=== PATIENT | female | born 2000 | race Caucasian/White ===

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

== ENCOUNTER 2022-12-30 22:58 | Outpatient (CLI) | payer MEDICAID, SELFPAY ==
[2022-12-30 23:09] VITALS: BMI 30.4
[2022-12-30 23:42] VITALS: TEMP 36.2
[2022-12-30 23:44] VITALS: BP 123/80; PULSE 72
[2022-12-31 00:02] LABS: Protein Urine 1+ (Negative); Urine Color Dark Yellow (Yellow); pH Urine 6 (5-7)
[2022-12-31 00:03] LABS: Add Urine Culture? No; Bacteria Urine 1+ /hpf; Bilirubin Urine 1+ (Negative); Blood Urine Neg (Negative); Glucose Urine UA 4+ (Normal); Ketones Urine 2+ (Negative); Leukocyte Esterase Urine Negative (Negative); Mucus Urine 3+ /hpf; Nitrate Urine Negative (Negative); Urine Appearance SL Hazy (CLEAR); Urobilinogen Urine 1 mg/dL (Negative)
[2022-12-31 00:20] VITALS: BP 123/80; PULSE 72; RESP 16; TEMP 36.2
== END 2022-12-31 00:23 | disposition home or self-care (01) ==
LOC: OPOB 23:03 → OBGYN 23:05
PROVIDERS: PCP Family Medicine; Visit Provider Family Medicine
DX: O47.9 False labor, unspecified (principal); Z3A.00 Weeks of gestation of pregnancy not specified
CPT/HCPCS: 59025; 81001; 99211

== ENCOUNTER 2023-01-03 05:59 | Inpatient (IN) | payer MEDICAID, SELFPAY ==
[2023-01-03] VITALS (52 sets, daily range): BP systolic 124–156; BP diastolic 81–108; PULSE 71–137; RESP 16–18; TEMP 36.2–37; O2SAT 99–100; BMI 31.2
[2023-01-03 08:09] LABS: Basophils % 0.5 %; Eosinophils # 0.1 10^3/uL (0.0-0.8); Eosinophils % 1.2 %; Hematocrit 35.3 % (36-47); Lymphocytes # 2.1 10^3/uL (1.5-6.5); Lymphocytes % 35.9 %; Mean Corpuscular HGB Conc 32.6 g/dL (30-55); Mean Corpuscular Hemoglobin 25.6 pg (27-33); Mean Corpuscular Volume 78.6 fl (85-98); Monocytes # 0.6 10^3/uL (0.2-0.9); Monocytes % 9.9 %; Neutrophils # 3.08 10^3/uL (1.8-8.0); Neutrophils % 51.7 %; Nucleated Red Blood Cells % 0 %; Platelet Count 183 10^3/cmm (157-399); Red Blood Count 4.49 10^6/uL (3.85-5.65); Red Cell Distribution Width 13.2 % (12.1-15.1); White Blood Count 5.96 10^3/uL (4.5-13.0)
[2023-01-03] MEDS: sodium chloride 0.9% 1,000 ML 125 ML IV ×3 (08:21→16:05)
[2023-01-03] MEDS: ampicillin 2,000 MG in sodium chloride 0.9% (plus) 50 ML 100 MG IV (08:21)
--- NOTE | 2023-01-03 08:47 | PM.OBGYHP ---
Providers/Chief Complaint Admitting Physician: Price Calzada MD Primary Care Provider: Giorgi Hernandez MD Chief Complaint: induction HPI SALES OPERATIONS ANALYST History of Present Illness This is a 22-year-old G3, P1 that presents for induction of labor due to pre-existing diabetes. The patient is a type I diabetic. Overall, the patient's blood sugars have been adequately controlled. The patient had significant issues with fasting the blood sugars and initially they were fairly uncontrolled. Patient's last A1c was 7.7. The patient had a history of preeclampsia and shoulder dystocia with prior delivery. Patient had been getting interval growth ultrasounds and her last growth ultrasound showed estimated weight of 6 pounds 4 ounce. Patient is GBS positive. lab work was unremarkable. Patient's care was fairly unremarkable. Present Details : 3 Para: 1 Labs Rubella: Immune RPR: Negative GBS: Positive Review of Systems General: Reports: 10 or more systems reviewed and unremarkable except in HPI and below Medications/Allergies Home Medications Medication Instructions Recorded Confirmed Last Taken Type Novolog Flexpen U-100 Insulin See Rx Instructions .Route .COMPLEX 07/23/20 01/03/23 01/03/23 05:04 History flash glucose scanning reader #1 ea 07/30/20 02/25/22 Unknown Rx (FreeStyle Rashid 2 [place]) flash glucose sensor (FreeStyle #2 ea 07/30/20 02/25/22 Unknown Rx Rashid 2 Sensor kit) [id number] 1 mg 1 tab PO DAILY 01/03/23 01/03/23 01/03/23 04:30 History tablet Allergies Allergy/AdvReac Type Severity Reaction Status Date / Time No Known Allergies Allergy Verified 01/03/23 06:19 PFSH SALES OPERATIONS ANALYST PFSH: Medical History Diabetes type 1, uncontrolled Eclampsia during puerperium, uterine contractions Surgical History No history of previous surgery Family History Other Hypertension Social History Smoking and tobacco status: never smoked Second hand smoke exposure: No Alcohol intake: never Vitals/I&O/Wt Last Vital Signs Temp 97.2 F L 01/03/23 06:28 Pulse 79 01/03/23 08:41 BP 148/101 01/03/23 08:41 O2 Del Method Room Air 01/03/23 06:28 Weight last 48 hrs Weight 82.554 kg Physical Exam Const: COMMON NORMALS: no acute distress, patient oriented x3, healthy appearing and alert Resp: COMMON NORMALS: normal respiratory effort and No retractions Cardio: COMMON NORMALS: no JVD and regular rate GI: OTHER: gravid Extremity: COMMON NORMALS: normal to inspection, full ROM and no clubbing, cyanosis or edema Neuro: COMMON NORMALS: patient oriented x3, moves all extremities, no focal motor deficits and no sensory deficits noted Psych: COMMON NORMALS: mental status grossly normal, cooperative and normal affect Skin: COMMON NORMALS: no rashes or lesions noted Data 01/03/23 06:58 A&P Assessment and plan (1) Term , repeat: Proceed with routine labor management. Start Pitocin for induction. (2) Type 2 diabetes mellitus affecting in third trimester, antepartum: Start with checking blood sugars every 4 hours. We will start normal saline but may add D5 if needed. May need to restart insulin pump if elevated glucoses are noted. (3) GBS (group B Streptococcus carrier), +RV culture, currently : Start amp Attestations Medical Necessity Statement*: Admit for induction of labor and anticipate at least 1 midnight stay. Coding Level of Care Code Acute Code for Chg Fwd Diagnoses Term , repeat Z34.90 Type 2 diabetes mellitus affecting in third trimester, antepartum O24.113 GBS (group B Streptococcus carrier), +RV culture, currently O99.820
[2023-01-03] MEDS: oxytocin 30 UNIT/500 ML BAG IV (08:54)
[2023-01-03] MEDS: ampicillin 1,000 MG in sodium chloride 0.9% (plus) 50 ML 100 MG IV ×2 (12:54→18:08)
[2023-01-03] MEDS: fentaNYL 50 mcg/mL INJ 2mL IVP (13:33)
[2023-01-03] MEDS: ROPivacaine syringe 100 MG/50 ML SYRINGE 10 MG EPIDURAL ×2 (13:59→17:17)
--- NOTE | 2023-01-03 14:14 | P.ANESASSM_ITS ---
Pre-Anesthetic Assessment Height/Weight: Height 1.63 m Weight 82.554 kg Temp Pulse Resp BP Pulse Ox O2 Del Method 97.2 F L 98 17 129/91 100 Room Air 01/03/23 13:59 01/03/23 14:02 01/03/23 13:33 01/03/23 14:02 01/03/23 13:56 01/03/23 07:49 Preop Diagnosis: IUP Labor Epidural Familial anesthetic complications: None Was Beta Anamika taken within 24 hours: N/A Was Clonidine taken within 24 hours: N/A Last intake: solid: 0430 Liquid: 0830 Social No alcohol and No tobacco Exam alert, oriented x 3, clear to auscultation bilaterally and regular rate & rhythm Airway Submandibular: within normal limits Cervical ROM: within normal limits Mallampati: Class II Dentition: full History/ROS No significant history except as noted Pulmonary None reported CV/HEM None reported None reported Hepatic None reported GI Gastroesophageal Reflux Disease Metabolic Diabetes Mellitus (Type I, on insulin pump ) Musc/skel None reported Neuropsych None reported Anesthetic Plan ASA status: 2 Anesthesia: Anesthesia Evaluation, Eval. for regional block (epidural ) and Regional (specify below) Risk of > 500 ml blood loss (7ml/kg in children): Yes, adequate IV access and fluids planned Medications/Allergies Home Medications Medication Instructions Recorded Confirmed Last Taken Type Novolog Flexpen U-100 Insulin See Rx Instructions .Route .COMPLEX 07/23/20 01/03/23 01/03/23 05:04 History flash glucose scanning reader #1 ea 07/30/20 02/25/22 Unknown Rx (FreeStyle Rashid 2 [place]) flash glucose sensor (FreeStyle #2 ea 07/30/20 02/25/22 Unknown Rx Rashid 2 Sensor kit) [id number] 1 mg 1 tab PO DAILY 01/03/23 01/03/23 01/03/23 04:30 History tablet Allergies Allergy/AdvReac Type Severity Reaction Status Date / Time No Known Allergies Allergy Verified 01/03/23 06:19 Current Medications Generic Name Dose Route Start Last Admin Trade Name Freq PRN Reason Stop Dose Admin Fentanyl 25 - 100 mcg 01/03/23 07:49 01/03/23 13:33 Fentanyl 50 Mcg/Ml Inj 2ml IVP 25 mcg Q1H PRN Administration SEVERE PAIN Ampicillin Sodium 1,000 mg/ 50 mls @ 100 mls/hr 01/03/23 12:00 01/03/23 12:54 Sodium Chloride IV 100 mls/hr Q4H AIDE Administration Protocol Sodium Chloride 1,000 mls @ 125 mls/hr 01/03/23 08:00 01/03/23 13:06 Sodium Chloride 0.9% IV 125 mls/hr .Q8H AIDE Administration Oxytocin 30 unit in 500 mls @ 1 mls/hr 01/03/23 08:00 01/03/23 11:30 Pitocin IV 10 milliunit/min .Q24H AIDE 10 mls/hr Titration Protocol 1 MILLIUNIT/MIN Ropivacaine 100 mg in 50 mls @ 10 mls/hr 01/03/23 13:30 01/03/23 13:59 Naropin Syringe EPIDURAL 10 mls/hr .Q5H AIDE Administration PFSH Anesthesia Medical History Diabetes type 1, uncontrolled Eclampsia during puerperium, uterine contractions Surgical History No history of previous surgery Family History Other Hypertension Social History Smoking and tobacco status: never smoked Second hand smoke exposure: No Alcohol intake: never Female Reproductive History : 3 Data Anesthesia 01/03/23 06:58 Short CBC 01/03/23 Range/Units 06:58 WBC 5.96 (4.5-13.0) 10^3/uL Hgb 11.50 L (12.4-14.8) g/dL Hct 35.3 L (36-47) % MCV 78.6 L (85-98) fl Plt Count 183 (157-399) 10^3/cmm Neut % (Auto) 51.7 % Neut # (Auto) 3.08 (1.8-8.0) 10^3/uL Cardiac Studies: No Data to Display Anesthesia Procedures Date of Procedure 01/03/23 Epidural Time Out Performed: Yes Consents Signed: Procedure Consent Consent: requested by attending/covering physician, from patient, risks and benefits reviewed and patient agrees to proceed Lumbar Level: L4-L5 Epidural position: sitting Epidural procedure: sterile prep of area, 1% lidocaine to numb the area, 18 g needle, negative for paresthesia passed, test dose given, 1.5% xylocaine 1:200k epi (3 ml), placed PCEA, no systemic response, sterile dressing applied, L.U.D. no apparent complications and 0.2% Ropiavacaine @ mls/hr (10) Additional Comments: RUDDY 4.5cm, catheter easily threaded to 5cm in the space. pt educated on [employer] and report given to RN.
[2023-01-03] MEDS: oxytocin 30 UNIT/500 ML BAG 600 UNIT IV (20:22)
--- NOTE | 2023-01-03 20:26 | P.PCNOB_ITS ---
Delivery Note: Date of delivery: January 03, 2023 Pre-delivery diagnoses: Term intrauterine , pre-existing type 1 diabetes Post-delivery diagnoses: Same, viable female Procedure: Spontaneous vaginal delivery Op report anesthesia: Epidural Delivering Physician: Yon Calzada MD Estimated blood loss (mL): 200 Pre-Delivery Course: This is a 22-year-old G3, P2 that presented at 38 weeks 2 days for induction of labor secondary to type 1 diabetes. Patient was started on Pitocin and entered into a nice contraction pattern. Artificial rupture of membranes occurred and the patient slowly dilated to completion over the next several hours. heart tones were reassuring throughout the labor process. Delivery: Once patient was complete the patient was placed into normal lithotomy position and started pushing with each contraction. Patient made slow progression with each push. Several maneuvers were performed to help baby descent with pushes and eventually the 's head was delivered. Obvious shoulder dystocia was inserted and the patient was placed flatly and Tere was performed immediately. After anterior shoulder shoulder was not delivered then suprapubic pressure towards maternal left was performed and downward traction was placed. Continue maneuvers was performed and with a combination of Yoandy and Palomares maneuvers eventually the anterior shoulder was delivered. Significant downward traction was performed. Estimated time of dystocia was approximately 3 minutes. Infant's body was then delivered and was placed on maternal abdomen. Cord was clamped and cut and was handed off to waiting nursing staff for recovery. Placenta was then delivered soon after. Review of the perineum showe d a second-degree perineal tear and several first-degree labial tears that were not actively bleeding. Second-degree tear was repaired with 2-0 Vicryl. The labial tears were not repaired since they were not actively bleeding. Uterus was firm after procedure and bleeding was controlled. Post-Delivery Status: Stable History History History 3 Term 2 Miscarriages/Ectopic 1 Living Children 2 A&P Assessment and plan (1) Vaginal delivery: Routine care (2) Shoulder dystocia during labor and delivery, delivered: (3) Type 1 diabetes mellitus in : Restart insulin pump at normal basal rate. Normal diabetic diet. Coding Level of Care Code Acute Code for Chg Fwd Diagnoses Vaginal delivery O80 Shoulder dystocia during labor and delivery, delivered O66.0 Type 1 diabetes mellitus in O24.019
[2023-01-03] MEDS: ondansetron 2 mg/ML SDV 2 mL 4 MG IVP (22:54)
[2023-01-03] MEDS: HYDROcodone-acetaminophen 5-325 mg Tablet PO (22:54)
[2023-01-04] VITALS (7 sets, daily range): BP systolic 115–142; BP diastolic 73–96; PULSE 72–112; RESP 16–17; TEMP 36.6–37.5; O2SAT 97–99
--- NOTE | 2023-01-04 00:39 | PC.NURSE ---
blood sugars checked by patient per doctors orders @ 1999- blood sugar of 155. patient instructed by doctor to eat then begin treating with insulin. Checked @ 2200 blood sugar of 189. patient reeducated to eat then begin insulin treatment per doctors orders Checked @ 2345 blood sugar of 296 patient administered 3.4 units of novalog insulin via insulin pump.
[2023-01-04] MEDS: HYDROcodone-acetaminophen 5-325 mg Tablet PO ×2 (04:54→13:07)
--- NOTE | 2023-01-04 05:04 | PC.NURSE ---
Patient checked blood sugar at 0458 using dexacom. Blood sugar level of 145. patient treated wit 0.4 units novalog insulin via insulin pump.
--- NOTE | 2023-01-04 07:22 | PM.OBGYPN ---
ALTERNATIVE DISPUTE RESOLUTION MEDIATOR Subjective Subjective: Interval history: This is a 25-year-old G3, P2 that is status post day 1 spontaneous vaginal delivery with shoulder dystocia. The patient is sore but overall doing well. Patient is ambulating and urinating without difficulty. Lochia is appropriate. Blood sugars are little low this morning but overall stable. Labor: Station: +2 Amniotic Membrane Status: Ruptured Monitor Mode: External Contraction Pattern: Regular Vitals/I&O/Wt Last Vital Signs Temp 97.9 F 01/04/23 05:04 Pulse 93 01/04/23 05:04 Resp 16 01/04/23 05:04 BP 118/78 01/04/23 05:04 Pulse Ox 98 01/04/23 05:04 O2 Del Method Room Air 01/04/23 05:04 01/03/23 01/04/23 01/04/23 22:59 06:59 14:59 Intake Total 1110.250 / 3376.953 5467 / 3278.100 Output Total 200 / 200 1000 / 1200 Balance 910.250 / 1578.100 500 / 2078.100 Weight last 48 hrs Weight 82.554 kg Physical Exam Const: COMMON NORMALS: no acute distress, patient oriented x3, healthy appearing and alert Neck/C-Spine: COMMON NORMALS: no JVD Resp: COMMON NORMALS: normal respiratory effort and No retractions Cardio: COMMON NORMALS: no JVD and regular rate RATE: regular rate GI: OTHER: Uterus firm and below umbilicus Extremity: COMMON NORMALS: normal to inspection, full ROM and no clubbing, cyanosis or edema Neuro: COMMON NORMALS: patient oriented x3, moves all extremities, no focal motor deficits and no sensory deficits noted SENSORIUM/ORIENTATION: Yes alert Psych: COMMON NORMALS: mental status grossly normal, cooperative and normal affect Skin: COMMON NORMALS: no rashes or lesions noted GENERAL SKIN EXAM: no rashes or lesions noted Urinary Catheter Management: Murrell: Cath Placed During This Visit: yes Reason for Continuing Indwelling Catheter: Accurate Measurement of Urinary Output in Critically Ill Patients Urinary Catheter Date of Insertion: 01/03/23 Urinary Catheter Time of Insertion: 15:05 Data 01/03/23 06:58 A&P Assessment and plan (1) Vaginal delivery: Routine care (2) Shoulder dystocia during labor and delivery, delivered: (3) Diabetes type 1, uncontrolled: Diabetic diet, monitor blood sugars. Continue to use insulin pump Attestations Medical Necessity Statement*: Anticipate 2 midnight stay. Likely discharge tomorrow. Coding Level of Care Code Acute Code for Chg Fwd Diagnoses Vaginal delivery O80 Shoulder dystocia during labor and delivery, delivered O66.0 Diabetes type 1, uncontrolled E10.65
[2023-01-04] MEDS: ibuprofen 800 mg tablet PO ×3 (09:19→20:26)
[2023-01-04] MEDS: prenatal vitamin Capsule 1 CAP PO (09:19)
[2023-01-04] MEDS: docusate sodium 100 mg Capsule PO ×2 (09:19→20:25)
[2023-01-04 11:23] LABS: Hematocrit 32.8 % (36-47); Mean Corpuscular HGB Conc 33.8 g/dL (30-55); Mean Corpuscular Hemoglobin 26.5 pg (27-33); Mean Corpuscular Volume 78.3 fl (85-98); Mean Platelet Volume 12.8 fL (7.4-10.4); Platelet Count 190 10^3/cmm (157-399); Red Blood Count 4.19 10^6/uL (3.85-5.65); Red Cell Distribution Width 13.5 % (12.1-15.1); White Blood Count 10.58 10^3/uL (4.5-13.0)
[2023-01-05 05:00] VITALS: BP 108/62; PULSE 86; RESP 16; TEMP 36.7
--- NOTE | 2023-01-05 07:29 | P.DS_ITS ---
Discharge Providers APPLICATION SECURITY ENGINEER Date of Admission: 01/03/23 05:59 Date of Discharge: 01/05/23 Attending Provider at Admission: Price Calzada MD Attending Provider at Discharge: Price Calzada MD Primary Care Provider: Giorgi Hernandez MD Diagnoses at Discharge Discharge Diagnosis (1) Vaginal delivery: Status: Acute (2) Shoulder dystocia during labor and delivery, delivered: Status: Acute (3) Diabetes type 1, uncontrolled: Status: Acute Reason for Visit Reason for Visit: induction Brief History: This is a 22-year-old G3, P2 that presented for induction due to pre-existing type 1 diabetes. Hospital Course Hospital Course Patient was started on Pitocin for induction of labor. Eventually the patient became completely dilated and had a complicated delivery due to severe shoulder dystocia. Once infant was delivered, the patient recovered well. Patient had no complications. Patient is ambulating and urinating without diffi culty. Information Peripartum Data: Infant Delivery Method: Vaginal Laceration description: Perineal - 2nd Degree Episiotomy description: None complications: none Physical Exam Const: COMMON NORMALS: no acute distress, patient oriented x3, healthy appearing and alert Neck/C-Spine: COMMON NORMALS: no JVD Resp: COMMON NORMALS: normal respiratory effort and No retractions Cardio: COMMON NORMALS: no JVD and regular rate RATE: regular rate GI: OTHER: Uterus firm and below umbilicus Extremity: COMMON NORMALS: normal to inspection, full ROM and no clubbing, cyanosis or edema Neuro: COMMON NORMALS: patient oriented x3, moves all extremities, no focal motor deficits and no sensory deficits noted SENSORIUM/ORIENTATION: Yes alert Psych: COMMON NORMALS: mental status grossly normal, cooperative and normal affect Skin: COMMON NORMALS: no rashes or lesions noted GENERAL SKIN EXAM: no rashes or lesions noted Urinary Catheter Management: Murrell: Cath Placed During This Visit: yes Reason for Continuing Indwelling Catheter: Accurate Measurement of Urinary Output in Critically Ill Patients Urinary Catheter Date of Insertion: 01/03/23 Urinary Catheter Time of Insertion: 15:05 History History History 3 Term 2 Miscarriages/Ectopic 1 Living Children 2 Discharge Data Studies Completed and Pending Laboratory Results WBC 10.58 10^3/uL (4.5-13.0) 01/04/23 11:17 RBC 4.19 10^6/uL (3.85-5.65) 01/04/23 11:17 Hgb 11.10 g/dL (12.4-14.8) L 01/04/23 11:17 Hct 32.8 % (36-47) L 01/04/23 11:17 MCV 78.3 fl (85-98) L 01/04/23 11:17 MCH 26.5 pg (27-33) L 01/04/23 11:17 MCHC 33.8 g/dL (30-55) 01/04/23 11:17 RDW 13.5 % (12.1-15.1) 01/04/23 11:17 Plt Count 190 10^3/cmm (157-399) 01/04/23 11:17 MPV 12.8 fL (7.4-10.4) H 01/04/23 11:17 Neut % (Auto) 51.7 % 01/03/23 06:58 Lymph % (Auto) 35.9 % 01/03/23 06:58 [place] % (Auto) 9.9 % 01/03/23 06:58 Eos % (Auto) 1.2 % 01/03/23 06:58 Baso % (Auto) 0.5 % 01/03/23 06:58 Neut # (Auto) 3.08 10^3/uL (1.8-8.0) 01/03/23 06:58 Lymph # (Auto) 2.1 10^3/uL (1.5-6.5) 01/03/23 06:58 [place] # (Auto) 0.6 10^3/uL (0.2-0.9) 01/03/23 06:58 Eos # (Auto) 0.1 10^3/uL (0.0-0.8) 01/03/23 06:58 Baso # (Auto) 0.0 10^3/uL (0.0-0.1) 01/03/23 06:58 Nucleated RBC % (auto) 0 % 01/03/23 06:58 Nucleated RBCs # 0.0 /100WBC 01/03/23 06:58 Vitals Last Vital Signs Temp 98.0 F 01/05/23 05:00 Pulse 86 01/05/23 05:00 Resp 16 01/05/23 05:00 BP 108/62 01/05/23 05:00 Pulse Ox 99 01/04/23 15:47 O2 Del Method Room Air 01/04/23 15:47 Discharge Plan Discharge Patient Disposition: Home Condition: Stable Prescriptions: Continued (DME) FreeStyle Rashid 2 [place] Misc See Rx Instructions .ROUTE .MEDSUPPLY Qty: 1 0RF Rx Instructions: check blood sugars 4 times (DME) FreeStyle Rashid 2 Sensor Kit See Rx Instructions .ROUTE .MEDSUPPLY Qty: 2 3RF Rx Instructions: check blood sugar 4 times a day Novolog Flexpen U-100 Insulin auto-injector See Rx Instructions .ROUTE .COMPLEX Rx Instructions: sliding scale 1 units for every 5 carbs [id number]-[id number]-Ab-FA 1 mg Tablet 1 tab PO DAILY Discharge Orders: Discharge Order (Routine); Ordered 01/05/23 Ordered By: Price Calzada Referrals: Price Calzada MD [Physician] - 6 Weeks Discharge Diet: Usual diet and Diabetic Discharge Activity: Limit activity as instructed Patient Instructions: Depression (DC), Opioid Safety (DC), Preeclampsia and Eclampsia After Delivery (GEN), Hemorrhage (DC), OB Discharge Report, OB Food/Drug Interaction Guide, Opioid Safety, OB Home Care, OB Vaginal Deliveries, Abnormal Bleeding Discharge Attestations APPLICATION SECURITY ENGINEER Time Spent in Discharge Care*: less than 30 min Status at Discharge: Cognitive status at discharge: cognitively intact , Behavioral status at discharge: cooperative , Coding Level of Care Code Acute Code for Chg Fwd Diagnoses Vaginal delivery O80 Shoulder dystocia during labor and delivery, delivered O66.0 Diabetes type 1, uncontrolled E10.65
[2023-01-05] MEDS: docusate sodium 100 mg Capsule PO (08:33)
[2023-01-05] MEDS: prenatal vitamin Capsule 1 CAP PO (08:33)
[2023-01-05] MEDS: ibuprofen 800 mg tablet PO (08:33)
[2023-01-05 10:20] VITALS: BP 128/90; PULSE 79; RESP 16; TEMP 36.6
== END 2023-01-05 10:55 | disposition home or self-care (01) | DRG 807 ==
PROVIDERS: Admitting Provider Family Medicine; PCP Family Medicine; Visit Provider Family Medicine
DX: O24.02 Pre-existing type 1 diabetes mellitus, in childbirth (principal); Z37.0 Single live birth; O66.0 Obstructed labor due to shoulder dystocia; O70.1 Second degree perineal laceration during delivery; O99.824 Streptococcus B carrier state complicating childbirth; Z3A.38 38 weeks gestation of pregnancy
CPT/HCPCS: 36415; 51702; 59025; 85025; 85027; 96374; J0290; J2405; J2590; J2795; J3010; J7030

== ENCOUNTER 2023-01-06 20:38 | Observation (INO) | payer MEDICAID, SELFPAY ==
[2023-01-03 22:30] VITALS: PULSE 84; RESP 18; TEMP 37; O2SAT 99
[2023-01-04] VITALS (7 sets, daily range): PULSE 72–112; RESP 16–17; TEMP 36.6–37.5; O2SAT 97–99
[2023-01-05 05:00] VITALS: PULSE 86; RESP 16; TEMP 36.7
[2023-01-06 20:50] VITALS: BP 172/96; PULSE 64; RESP 16; TEMP 36.6; O2SAT 100; BMI 27.3
[2023-01-06 21:37] LABS: Basophils # 0.1 10^3/uL (0.0-0.1); Basophils % 0.6 %; Eosinophils # 0.3 10^3/uL (0.0-0.8); Eosinophils % 3.4 %; Hematocrit 38.2 % (36-47); Lymphocytes # 2.3 10^3/uL (1.5-6.5); Lymphocytes % 29.9 %; Mean Corpuscular HGB Conc 31.9 g/dL (30-55); Mean Corpuscular Hemoglobin 25.6 pg (27-33); Mean Corpuscular Volume 80.1 fl (85-98); Mean Platelet Volume 11.5 fL (7.4-10.4); Monocytes # 0.5 10^3/uL (0.2-0.9); Neutrophils # 4.54 10^3/uL (1.8-8.0); Neutrophils % 58.8 %; Nucleated Red Blood Cells % 0 %; Platelet Count 263 10^3/cmm (157-399); Red Blood Count 4.77 10^6/uL (3.85-5.65); Red Cell Distribution Width 13.4 % (12.1-15.1); White Blood Count 7.72 10^3/uL (4.5-13.0)
--- NOTE | 2023-01-06 21:43 | ED_ITS ---
HPI - Headache General: Chief Complaint: Headache Stated Complaint: bp high Time Seen by Provider: 01/06/23 21:23 History of Present Illness: Presents to the ER 3 days post vaginal delivery with a headache since 5 PM today. Patient's blood pressure at home was 170/100. Patient does have a history of eclampsia with seizures. Patient's had a headache is throbbing she rates it a 5 out of the 10 scale. Review of Systems General: Reports: 10 or more systems reviewed and unremarkable except in HPI and below PFSH ED PFSH: Medical History Diabetes type 1, uncontrolled Eclampsia during puerperium, GBS (group B Streptococcus carrier), +RV culture, currently uterine contractions Shoulder dystocia during labor and delivery, delivered Surgical History No history of previous surgery Family History Other Hypertension Social History Smoking and tobacco status: never smoked Second hand smoke exposure: No Alcohol intake: never Physical Exam Const: COMMON NORMALS: no acute distress, average body habitus, patient o riented x3, no limitations, healthy appearing, alert and well nourished HENMT: COMMON NORMALS: normocephalic, atraumatic, hearing grossly normal b ilaterally, external ears normal, Normal external nose present and moist oral mucous membranes HEAD & SCALP: normocephalic and atraumatic NOSE: Normal external nose present EXTERNAL EAR: Yes external ears normal Neck/C-Spine: COMMON NORMALS: no JVD Chest: COMMONS NORMALS: normal inspection of the chest and normal palpation of entire chest wall Resp: COMMON NORMALS: normal respiratory effort, No retractions, No use of accessory muscles and clear to auscultation bilaterally AUSCULTATION: clear to auscultation bilaterally Cardio: COMMON NORMALS: no JVD, regular rate, regular rhythm, S1 normal heart sound present, S2 normal heart sound present, No gallops present (Cardio), No clicks present (Cardio), No murmurs present (Cardio) and No rub (Cardio) RATE: regular rate RHYTHM: regular rhythm HEART SOUNDS: S1 normal heart sound present and S2 normal heart sound present GI: COMMON NORMALS: Normal to inspection, nondistended, normoactive bowel sounds present, Soft to palpation and No hepatosplenomegaly present PALPATION: Yes Soft to palpation and Yes No hepatosplenomegaly present : COMMON NORMALS: Yes no CVA tenderness BLADDER/KIDNEY EXAM: Yes no CVA tenderness Back/Pelvis: COMMON NORMALS: no CVA tenderness Neuro: COMMON NORMALS: patient oriented x3 SENSORIUM/ORIENTATION: Yes alert Course Vital Signs: Vital signs: Vital Signs Temperature 98 F 01/06/23 20:50 Pulse Rate 64 01/06/23 20:50 Respiratory Rate 16 01/06/23 20:50 Blood Pressure 172/96 01/06/23 20:50 Pulse Oximetry 100 01/06/23 20:50 Oxygen Delivery Me thod Room Air 01/06/23 20:50 MDM - Headache Medical Decision Making Presents to the ER 3 days with headache and severe high blood pressure. Dr. Rodriguez was consulted who agreed to admit the patient for hypertension preeclampsia. Patient will be started on the labetalol and magnesium OB protocol. Lab Data 01/06/23 21:29 01/06/23 21:29 Laboratory Results WBC 7.72 10^3/uL (4.5-13.0) 01/06/23 21: RBC 4.77 10^6/uL (3.85-5.65) 01/06/23 21: Hgb 12.20 g/dL (12.4-14.8) L 01/06/23 21: Hct 38.2 % (36-47) 01/06/23 21: MCV 80.1 fl (85-98) L 01/06/23 21: MCH 25.6 pg (27-33) L 01/06/23 21: MCHC 31.9 g/dL (30-55) 01/06/23 21: RDW 13.4 % (12.1-15.1) 01/06/23 21: Plt Count 263 10^3/cmm (157-399) 01/06/23 21: MPV 11.5 fL (7.4-10.4) H 01/06/23 21: Neut % (Auto) 58.8 % 01/06/23 21:29 Lymph % (Auto) 29.9 % 01/06/23 21:29 [place] % (Auto) 6.0 % 01/06/23 21:29 Eos % (Auto) 3.4 % 01/06/23 21:29 Baso % (Auto) 0.6 % 01/06/23 21:29 Neut # (Auto) 4.54 10^3/uL (1.8-8.0) 01/06/23 21:29 Lymph # (Auto) 2.3 10^3/uL (1.5-6.5) 01/06/23 21:29 [place] # (Auto) 0.5 10^3/uL (0.2-0.9) 01/06/23 21:29 Eos # (Auto) 0.3 10^3/uL (0.0-0.8) 01/06/23 21:29 Baso # (Auto) 0.1 10^3/uL (0.0-0.1) 01/06/23 21:29 Nucleated RBC % (auto) 0 % 01/06/23 21:29 Nucleated RBCs # 0.0 /100WBC 01/06/23 21:29 Discharge Plan Discharge Patient Disposition: Admitted As Inpatient Clinical Impression: Preeclampsia in period Condition: Stable Prescriptions: No Action (DME) FreeStyle Rashid 2 [place] Misc See Rx Instructions .ROUTE .MEDSUPPLY Qty: 1 0RF Rx Instructions: check blood sugars 4 times (DME) FreeStyle Rashid 2 Sensor Kit See Rx Instructions .ROUTE .MEDSUPPLY Qty: 2 3RF Rx Instructions: check blood sugar 4 times a day Novolog Flexpen U-100 Insulin auto-injector See Rx Instructions .ROUTE .COMPLEX Rx Instructions: sliding scale 1 units for every 5 carbs subirune-xpr-Mz-FA 1 mg Tablet 1 tab PO DAILY Referrals: Giorgi Hernandez MD [Primary Care Provider] - Coding Level of Care Code ED Cloth Packer for Bhaveshg Yuri
[2023-01-06] MEDS: sodium chloride 0.9% 1,000 ML 999 ML IV (21:50)
[2023-01-06 21:57] VITALS: BP 154/106; PULSE 62; RESP 15; O2SAT 100
[2023-01-06 21:57] LABS: Alanine Aminotransferase 30 U/L (0-33); Albumin Level 3.7 g/dL (3.5-5.2); Alkaline Phosphatase 119 U/L (35-105); Anion Gap 14.8 (5-19); Aspartate Amino Transferase 36 U/L (0-32); Blood Urea Nitrogen 8 mg/dL (6-20); Calcium 9.1 mg/dL (8.5-10.5); Carbon Dioxide 27 mmol/L (22-29); Chloride 102 mmol/L (98-107); Globulin 2.9 g/dL (1.3-4.6); Glomerular Filtration Rate 203.5 mL/min (90-130); Glucose 140 mg/dL (65-115); Lactate Dehydrogenase 256 U/L (135-214); Osmolality Calculated 291 mOsm/kg (285-295); Potassium 3.8 mmol/L (3.5-5.1); Sodium 140 mmol/L (136-145); Total Bilirubin 0.2 mg/dL (0.15-1.2); Total Protein 6.6 g/dL (6.6-8.7)
[2023-01-06 23:11] VITALS: BP 126/92; PULSE 61; O2SAT 100
[2023-01-06 23:31] VITALS: BP 142/84; PULSE 60
[2023-01-06 23:45] VITALS: BP 128/81; PULSE 77
[2023-01-06 23:54] LABS: Creatinine Urine, Random 17 mg/dL (28-217); Microalbumin Random Urine 3 ug/dL (0-20)
[2023-01-06 23:55] LABS: Microalbum Creatinine Ratio Ur 176 mg/dL (0-20)
[2023-01-06 23:56] LABS: Add Urine Microscopic? YES; Bilirubin Urine Neg (Negative); Blood Urine 3+ (Negative); Glucose Urine UA Trace (Normal); Ketones Urine Negative (Negative); Leukocyte Esterase Urine Negative (Negative); Nitrate Urine Negative (Negative); Protein Urine Neg (Negative); Specific Gravity, Urine 1.005 (1.005-1.030); Urine Appearance Clear (CLEAR); Urine Color Yellow (Yellow); Urobilinogen Urine Norm (Negative); pH Urine 7 (5-7)
[2023-01-06 23:57] LABS: Add Urine Culture? No; Bacteria Urine TRACE /hpf; Squamous Epithelial Cell Urine 0-4 /hpf (0-5); WBC Urine 0-4 /hpf (0-5)
[2023-01-06 23:59] VITALS: BP 138/82; PULSE 70
[2023-01-07] VITALS (17 sets, daily range): BP systolic 104–149; BP diastolic 66–97; PULSE 59–83; RESP 16; TEMP 36.7; O2SAT 98
--- NOTE | 2023-01-07 02:39 | PC.NURSE ---
Pt reporting pain with her IV. Pt requested IV be removed and stated she is okay with us replacing IV in a different location if needed.
--- NOTE | 2023-01-07 06:44 | P.DS_ITS ---
Discharge Providers Date of Admission: 01/06/23 22:07 Date of Discharge: January 07, 2023 Attending Provider at Admission: Price Calzada MD Attending Provider at Discharge: Price Calzada MD Primary Care Provider: Giorgi Hernandez MD Reason for Visit Reason for Visit: bp high Brief History: This is a 22-year-old that is status post day 4 spontaneous vaginal deli very. Patient had noted that she was having a headache and elevated blood pressures at home. The patient has a history of preeclampsia. Blood pressures were in the 170s over 90s at home and this was the same upon arrival in the emergency department. There was concerns about developing preeclampsia given severe blood pressure elevations. Patient was worked up and labs were unremarkable. Patient continued to have a headache so the patient was admitted for observation. Hospital Course Hospital Course Upon arrival to the floor the patient's blood pressure did improve, however the patient did have some blood pressure readings with systolic elevation in the 140s. Headache did improve with Tylenol. Patient was able to rest overnight and was feeling better in the a.m. Patient is not having any other signs suggestive of preeclampsia and the patient was deemed stable for discharge home. Physical Exam Const: COMMON NORMALS: no acute distress, patient oriented x3, healthy appearing and alert Neck/C-Spine: COMMON NORMALS: no JVD Resp: COMMON NORMALS: normal respiratory effort and No retractions Cardio: COMMON NORMALS: no JVD and regular rate RATE: regular rate GI: OTHER: Uterus firm and below umbilicus Extremity: COMMON NORMALS: normal to inspection, full ROM and no clubbing, cyanosis or edema Neuro: COMMON NORMALS: patient oriented x3, moves all extremities, no focal motor deficits and no sensory deficits noted SENSORIUM/ORIENTATION: Yes alert Psych: COMMON NORMALS: mental status grossly normal, cooperative and normal affect Skin: COMMON NORMALS: no rashes or lesions noted GENERAL SKIN EXAM: no rashes or lesions noted Discharge Data Studies Completed and Pending Laboratory Results WBC 7.72 10^3/uL (4.5-13.0) 01/06/23 21:29 RBC 4.77 10^6/uL (3.85-5.65) 01/06/23 21:29 Hgb 12.20 g/dL (12.4-14.8) L 01/06/23 21:29 Hct 38.2 % (36-47) 01/06/23 21: MCV 80.1 fl (85-98) L 01/06/23 21: MCH 25.6 pg (27-33) L 01/06/23 21: MCHC 31.9 g/dL (30-55) 01/06/23 21: RDW 13.4 % (12.1-15.1) 01/06/23 21: Plt Count 263 10^3/cmm (157-399) 01/06/23 21: MPV 11.5 fL (7.4-10.4) H 01/06/23 21: Neut % (Auto) 58.8 % 01/06/23 21: Lymph % (Auto) 29.9 % 01/06/23 21: [place] % (Auto) 6.0 % 01/06/23 21: Eos % (Auto) 3.4 % 01/06/23 21: Baso % (Auto) 0.6 % 01/06/23 21: Neut # (Auto) 4.54 10^3/uL (1.8-8.0) 01/06/23 21: Lymph # (Auto) 2.3 10^3/uL (1.5-6.5) 01/06/23 21: [place] # (Auto) 0.5 10^3/uL (0.2-0.9) 01/06/23 21: Eos # (Auto) 0.3 10^3/uL (0.0-0.8) 01/06/23 21: Baso # (Auto) 0.1 10^3/uL (0.0-0.1) 01/06/23 21: Nucleated RBC % (auto) 0 % 01/06/23: Nucleated RBCs # 0.0 /100WBC 01/06/23 21: Sodium 140 mmol/L (136-145) 01/06/23 21: Potassium 3.8 mmol/L (3.5-5.1) 01/06/23 21: Chloride 102 mmol/L (98-107) 01/06/23 21: Carbon Dioxide 27 mmol/L (22-29) 01/06/23 21: Anion Gap 14.8 (5-19) 01/06/23 21:29 BUN 8 mg/dL (6-20) 01/06/23 21:29 Creatinine 0.4 mg/dL (0.5-0.9) L 01/06/23 21:29 GFR Calculation 203.5 mL/min (90-130) H 01/06/23 21:29 Glucose 140 mg/dL (65-115) H 01/06/23 21:29 Calculated Osmolality 291 mOsm/kg (285-295) 01/06/23 21:29 Calcium 9.1 mg/dL (8.5-10.5) 01/06/23 21:29 Total Bilirubin 0.2 mg/dL (0.15-1.2) 01/06/23 21:29 AST 36 U/L (0-32) H 01/06/23 21:29 ALT 30 U/L (0-33) 01/06/23 21:29 Alkaline Phosphatase 119 U/L (35-105) H 01/06/23 21:29 Lactate Dehydrogenase 256 U/L (135-214) H 01/06/23 21:29 Total Protein 6.6 g/dL (6.6-8.7) 01/06/23 21:29 Albumin 3.7 g/dL (3.5-5.2) 01/06/23 21:29 Globulin 2.9 g/dL (1.3-4.6) 01/06/23 21:29 Urine Color Yellow (Yellow) 01/06/23 22:40 Urine Appearance Clear (CLEAR) 01/06/23 22:40 Urine pH 7 (5-7) 01/06/23 22:40 Ur Specific [place] 1.005 (1.005-1.030) 01/06/23 22:40 Urine Protein Neg (Negative) 01/06/23 22:40 Urine Glucose (UA) Trace (Normal) H 01/06/23 22:40 Urine Ketones Negative (Negative) 01/06/23 22:40 Urine Blood 3+ (Negative) H 01/06/23 22:40 Urine Nitrate Negative (Negative) 01/06/23 22:40 Urine Bilirubin Neg (Negative) 01/06/23 22:40 Urine Urobilinogen Norm mg/dL (Negative) 01/06/23 22:40 Ur Leukocyte Esterase Negative (Negative) 01/06/23 22:40 Urine RBC 5-10 /hpf (0-2) H 01/06/23 22:40 Urine WBC 0-4 /hpf (0-5) H 01/06/23 22:40 Ur Squamous Epith Cells 0-4 /hpf (0-5) H 01/06/23 22:40 Amorphous Sediment Not Reportable 01/06/23 22:40 Urine Bacteria Trace /hpf (NONE) 01/06/23 22:40 Ur Random Microalbumin 3 ug/dL (0-20) 01/06/23 22:40 Urine Creatinine 17 mg/dL (28-217) L 01/06/23 22:40 Microalb/Creat Ratio 176 mg/dL (0-20) H 01/06/23 22:40 Vitals Last Vital Signs Temp 98 F 01/06/23 20:50 Pulse 71 01/07/23 06:41 Resp 16 01/07/23 00:34 BP 143/87 01/07/23 06:41 Pulse Ox 100 01/06/23 23:11 O2 Del Method Room Air 01/07/23 02:32 Discharge Plan Discharge Patient Disposition: Home Condition: Stable Prescriptions: Continued (DME) FreeStyle Rashid 2 [place] Misc See Rx Instructions .ROUTE .MEDSUPPLY Qty: 1 0RF Rx Instructions: check blood sugars 4 times (DME) FreeStyle Rashid 2 Sensor Kit See Rx Instructions .ROUTE .MEDSUPPLY Qty: 2 3RF Rx Instructions: check blood sugar 4 times a day Novolog Flexpen U-100 Insulin auto-injector See Rx Instructions .ROUTE .COMPLEX Rx Instructions: sliding scale 1 units for every 5 carbs fatydckq-tnk-Ui-FA 1 mg Tablet 1 tab PO DAILY Discharge Orders: Discharge Order (Routine); Ordered 01/07/23 Ordered By: Price Calzada Referrals: Price Calzada MD [Physician] - 1 week Giorgi Hernandez MD [Primary Care Provider] - Discharge Diet: Advance as tolerated Discharge Activity: Limit activity as instructed Patient Instructions: Opioid Safety Discharge Attestations Time Spent in Discharge Care*: greater than 30 min Status at Discharge: Cognitive status at discharge: cognitively intact , Behavioral status at discharge: cooperative , Quality Metrics Clinical Quality Measures [ No reported AMI, CVA or VTE this stay] Coding Level of Care Code Acute Code for Chg Fwd Diagnoses
--- NOTE | 2023-01-07 08:02 | ANE.PACU2 ---
Inpatient post-anesthesia follow up: Airway intact: Yes Vital signs: Temperature 98.1 F Pulse Rate 70 Respiratory Rate 16 Blood Pressure 143/96 Pulse Oximetry 98 Oxygen Delivery Me thod Room Air Oxygen Flow Rate Fraction of Inspir ed Oxygen Hydration adequate: Yes Nausea and vomiting: No Pain level: 1 Mental status: Baseline
== END 2023-01-07 10:30 | disposition home or self-care (01) ==
LOC: ER 22:02 → OBGYN 23:52
PROVIDERS: Emergency Medicine; Admitting Provider Family Medicine; Emergency Provider Emergency Medicine; PCP Family Medicine; Visit Provider Family Medicine
DX: O14.95 Unspecified pre-eclampsia, complicating the puerperium (principal)
CPT/HCPCS: 36415; 80053; 81001; 82044; 83615; 85025; 99285; G0378; J7030